=== PATIENT | male | born 1945 | race Caucasian/White ===

== ENCOUNTER → 2016-10-12 | Outpatient (CLI) | payer MEDICARE, OTHER ==
[~2016-10-12] MED LIST: ATENOLOL25 MG PO; MOTRIN 200200 MG/TAB PO; VASOTEC10 MG PO
== END ==
LOC: COL.RAD 10:08
DX: M79.9 Soft tissue disorder, unspecified (principal); W57.XXXA Bitten or stung by nonvenomous insect and other nonvenomous arthropods, initial encounter

== ENCOUNTER 2016-12-23 09:10 | Day surgery (SDC) | payer MEDICARE, OTHER ==
[~2016-12-23] VITALS: Ht 170.2 cm; Wt 108.8 kg
[2016-12-23] VITALS (8 sets, daily range): BP systolic 102–135; BP diastolic 51–82; PULSE 69–87; TEMP 98.2–99
[2016-12-23] MEDS ORDERED: HCTZ 25MG TAB25 MG PO (09:22)
[2016-12-23] MEDS ORDERED: VASOTEC 10M10 MG/TAB PO (09:23)
[2016-12-23 10:49] LABS: PH 5 (5-8); SQUAMOUS EPITHELIAL None Seen /hpf; URINE APPEARANCE Clear; URINE BACTERIA None Seen /hpf; URINE BILIRUBIN Negative (NEGATIVE); URINE BLOOD Negative (NEGATIVE); URINE COLOR Yellow; URINE GLUCOSE Negative (NEGATIVE); URINE KETONE Negative (NEGATIVE); URINE RBC 0-2 /hpf; URINE UROBILINOGEN >=4.0 mg/dL (NEGATIVE); URINE WBC 0-2 /hpf
[2016-12-23 10:55] LABS: ALBUMIN 4.1 gm/dL (3.5-5.0); BILIRUBIN,TOTAL 0.8 mg/dL (0.0-1.0); C-REACTIVE PROTEIN 8.9 mg/dL (0.0-0.9); CALCIUM 9.1 mg/dL (8.4-10.2); CREATININE, serum 0.7 mg/dL (0.66-1.25); POTASSIUM 3.9 mmol/L (3.4-5.0); TOTAL PROTEIN 7.3 gm/dL (6.4-8.2)
[2016-12-23 11:05] LABS: HEMATOCRIT 43.7 % (42.0-52.0); HEMOGLOBIN 14.7 g/dl (13.5-18.0); MEAN CELL VOLUME 89 fl (80.0-100.0); MEAN CORPUSCULAR HEMOGLOBIN 30 pg (27.0-31.0); MEAN CORPUSCULAR HGB CONC 34 g/dl (33.0-37.0); MEAN PLATELET VOLUME 9.6 fl (7.4-10.4); PLATELET COUNT 317 K/mm3 (130-400); RED BLOOD COUNT 4.91 M/mm3 (4.20-5.60); REDCELL DISTRIBUTION WIDTH-CV 13.1 % (11.5-14.5); WHITE BLOOD COUNT 18.3 K/mm3 (4.8-10.8)
[2016-12-23 11:06] LABS: ADD PATHOLOGY DIFF REVIEW NO
[2016-12-23 11:36] LABS: BAND 4 % (0-10); NEUTROPHILS 76 % (42.0-75.2); TOTAL CELLS COUNTED 100
[2016-12-23 11:37] LABS: PLATELET ESTIMATE NORMAL (NORMAL)
[2016-12-24 00:10] VITALS: BP 118/62; PULSE 65; TEMP 98
[2016-12-24 02:38] VITALS: BP 116/69; PULSE 63; TEMP 97.4
[2016-12-24 05:00] VITALS: BP 124/64; PULSE 68; TEMP 98
[2016-12-24 09:02] VITALS: BP 129/73; PULSE 66; TEMP 96
== END 2016-12-24 11:30 | disposition home or self-care (01) ==
LOC: COL.ER 09:10 → SURG 12:26 → SDCO 12:26 → SURG 12:40 → SDCO 12-24 11:30
PROVIDERS: Emergency Medicine
DX: K61.1 Rectal abscess (principal); I10 Essential (primary) hypertension; I25.10 Atherosclerotic heart disease of native coronary artery without angina pectoris; Z87.891 Personal history of nicotine dependence; M19.90 Unspecified osteoarthritis, unspecified site; Z90.49 Acquired absence of other specified parts of digestive tract; N28.1 Cyst of kidney, acquired; K76.89 Other specified diseases of liver
CPT/HCPCS: OP; J1100; J1170; J1885; J2250; J2405; J2543; J2704; J3010; J7030; J7040; J7050; J7120; Q9967

== ENCOUNTER 2021-08-20 08:53 | Inpatient (IN) | payer MEDICARE, OTHER ==
[~2021-08-20] VITALS: Ht 172.7 cm; Wt 107.0 kg
[~2021-08-20 08:53] MED LIST changes: +HCTZ 25MG TAB25 MG PO; +VASOTEC 10M10 MG/TAB PO
[2021-08-20 10:04] LABS: BASO % 0.2 % (0.0-2.0); EOS % 0.1 % (0.0-4.0); GRAN # 10.7 K/mm3 (1.4-6.5); GRAN % 83.6 % (42.2-75.2); HEMATOCRIT 42.9 % (42.0-52.0); HEMOGLOBIN 15.4 g/dl (13.5-18.0); LYMPH # 0.9 K/mm3 (1.2-3.4); MEAN CELL VOLUME 83 fl (80.0-100.0); MEAN CORPUSCULAR HEMOGLOBIN 30 pg (27-31); MEAN CORPUSCULAR HGB CONC 36 g/dl (33.0-37.0); MEAN PLATELET VOLUME 10.7 fl (7.4-10.4); MONO # 1.1 K/mm3 (0.1-0.6); MONO % 8.3 % (1.7-9.3); PLATELET COUNT 306 K/mm3 (130-400); RED BLOOD COUNT 5.18 M/mm3 (4.20-5.60); REDCELL DISTRIBUTION WIDTH-CV 13.3 % (11.5-14.5)
[2021-08-20 10:23] LABS: ALBUMIN 3.2 gm/dL (3.4-4.8); BILIRUBIN,TOTAL 0.8 mg/dL (0.2-1.2); CALCIUM 9.5 mg/dL (8.4-10.2); CREATININE, serum 1.74 mg/dL (0.72-1.25); TOTAL PROTEIN 6.4 gm/dL (6.2-8.1)
[2021-08-20 11:25] LABS: COLLECTION METHOD CLEAN CATCH
[2021-08-20 11:46] LABS: MUCOUS Present (NOT PRESENT); PH 6 (5-8); SQUAMOUS EPITHELIAL None Seen /hpf (0-10); URINE APPEARANCE Clear (CLEAR/HAZY); URINE BACTERIA Rare /hpf (NONE SEEN); URINE BILIRUBIN Negative (NEGATIVE); URINE BLOOD Negative (NEGATIVE); URINE COLOR Yellow (YELLOW); URINE GLUCOSE Negative (NEGATIVE); URINE KETONE Trace (NEGATIVE); URINE LEUKOCYTE ESTERASE Negative (NEGATIVE); URINE NITRATE Negative (NEGATIVE); URINE PROTEIN(semi-quant) Negative (NEGATIVE); URINE RBC 0-2 /hpf (0-2); URINE UROBILINOGEN Negative (NEGATIVE)
[2021-08-20 14:19] VITALS: BP 97/53; PULSE 99; TEMP 98.1
[2021-08-20 15:40] VITALS: BP 130/58; PULSE 89; TEMP 98.7
--- NOTE | 2021-08-20 18:13 | NUR ---
PT LAYING SUPINE IN BED ON ROOM AIR. PT STATES THAT HE WOULD LIKE TO TAKE HIS BP MEDICATIONS. MEDICATIONS WERE NOT ORDERED. CALLED [facility] AND SHE STATES THAT THEY ARE GOING TO CONTINUE TO HOLD THEM UNTIL IN THE AM BECAUSE HIS CREATINE WAS A LITTLE HIGH. PT WAS INFORMED AND UNHAPPY ABOUT DECISION BUT VERBALIZES UNDERSTANDING. PT STATES THAT HE IS NOT HAVING ANY PAIN AT THIS TIME. HIS RIGHT LEG IS RED AND ELEVATED ON BLANKETS. PT STATES NO NEEDS AT THIS TIME. "I WOULD JUST LIKE TO GET SOME REST." CALL LIGHT IS WITHIN REACH.
[2021-08-20 21:37] VITALS: BP 109/52; PULSE 85; TEMP 97.8
[2021-08-21 01:00] VITALS: BP 135/63; PULSE 90; TEMP 98.7
[2021-08-21 04:55] VITALS: BP 137/63; PULSE 77; TEMP 98.8
[2021-08-21 07:25] LABS: BASO % 0.2 % (0.0-2.0); EOS % 0.1 % (0.0-4.0); GRAN # 7.8 K/mm3 (1.4-6.5); GRAN % 78.5 % (42.2-75.2); HEMATOCRIT 41.4 % (42.0-52.0); LYMPH # 1.1 K/mm3 (1.2-3.4); LYMPH % 10.6 % (20.0-51.0); MEAN CELL VOLUME 87 fl (80.0-100.0); MEAN CORPUSCULAR HEMOGLOBIN 30 pg (27-31); MEAN CORPUSCULAR HGB CONC 34 g/dl (33.0-37.0); MEAN PLATELET VOLUME 10.2 fl (7.4-10.4); MONO % 9.6 % (1.7-9.3); PLATELET COUNT 337 K/mm3 (130-400); RED BLOOD COUNT 4.75 M/mm3 (4.20-5.60); REDCELL DISTRIBUTION WIDTH-CV 13.5 % (11.5-14.5)
[2021-08-21 07:54] LABS: C-REACTIVE PROTEIN 5.84 mg/dL (0.00-0.50); CALCIUM 8.5 mg/dL (8.4-10.2); CREATININE, serum 0.86 mg/dL (0.72-1.25); MAGNESIUM 2.1 mg/dL (1.6-2.6); POTASSIUM 3.6 mmol/L (3.5-4.5)
[2021-08-21 07:58] VITALS: BP 128/54; PULSE 92; TEMP 98.4
--- NOTE | 2021-08-21 09:10 | NUR ---
PT LAYING SUPINE IN BED ON ROOM AIR. PT STATES THAT HE IS NOT HAVING ANY PAIN OR DISCOMFORT AT THIS TIME. "I ALREADY HAD MY BREAKFAST AND IT WAS ACTUALLY PRETTY GOOD TODAY." PT STATES NO NEEDS AT THIS TIME. RIGHT LEG IS RED AND CELLULITIS IS NOTED. LEG IS ELEVATED ON BLANKETS. CALL LIGHT IS WITHIN REACH.
--- NOTE | 2021-08-21 10:26 | NUR ---
custom shop worker met with patient to complete intake and discuss discharge plan. Patient states that he lives at home alone in [place]. He states that he has trouble performing his ADL's due to the pain in his legs. Patient states that he will utilize a walker when he has to use tthe restroom to help with his balance but he will use a cane to assist with ambulation. Patient has no home oxygen needs. PCP is Dr. Mchugh and he utilizes [facility] for medication needs. Patient states that he does have a DPOA-HC established listing his daughter Lyn([phone]). SW informed the patient that PT/OT has been ordered and we will wait for their recommendations for dc plan. Discharge plan: Home *pending PT/OT rec's*
--- NOTE | 2021-08-21 10:36 | NUR ---
Initial visit attempt; Patient resting, Ordnance Truck Installation Mechanic left card offering God's blessings and letting him know of the availability of [facility] at our hospital.
[2021-08-21 11:27] VITALS: BP 153/61; PULSE 88; TEMP 98.8
[2021-08-21 15:42] VITALS: BP 149/68; PULSE 94; TEMP 98.7
--- NOTE | 2021-08-21 18:33 | NUR ---
PT LAYING IN BED WATCHING TV. PT STATES THAT HE IS NOT HAVING ANY PAIN. PT STATES NO NEEDS AT THIS TIME. "I AM JUST HANGING OUT." CALL LIGHT IS WITHIN REACH.
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
[2021-08-21 21:32] VITALS: BP 161/64; PULSE 98; TEMP 100.9
[2021-08-22] VITALS (7 sets, daily range): BP systolic 132–162; BP diastolic 57–71; PULSE 64–96; TEMP 97.5–100.3
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
--- NOTE | 2021-08-22 09:30 | NUR ---
Patient is sitting in bed, alert an oriented x 4. Denies pain in his leg. Continues with reddness and inflamation. Assessment completed, IV leaking, DC. and will start new one. Assessment completed, continue monitoring.
--- NOTE | 2021-08-22 12:08 | NUR ---
Unable to get a new IV in PT. Several times including house supr. were done. Reported to Yessenia, who ordered a dose of rosephin IM and a PICC to be started tomorrow morning.
--- NOTE | 2021-08-22 17:56 | NUR ---
Patient has been resting along the day. His son came to visit him. Aware of need for PICC access. Denied pain along the day. No fever but HTN. Report will be given to nurse RN.
--- NOTE | 2021-08-22 18:22 | NUR ---
Patient awake in room, refused to eat the food he ordered for dinner. He is confused. He asked about next dose of antibiotics. It was explained that he got an IM dose of Rocephin. He thinks that it was yesterday. Reoriented about IV DC and problems to restart a new one and the need for a PICC tomorrow morning.
--- NOTE | 2021-08-22 20:31 | NUR ---
Patient denies pain and discomfort. Has no IV Access at this time. Physician is aware, and patient is to have PICC placed tomorrow. Explained to patient and voiced understanding. Redness continues to RLE. Contained in the markings. 3+ edema and warmth continues. 2+ edema LLE. Voices no questions, needs, or concerns at this time. In bed with call light within reach. Bed alarm on.
[2021-08-23 03:39] VITALS: BP 159/72; PULSE 93; TEMP 98.2
--- NOTE | 2021-08-23 05:44 | NUR ---
Patient recieved PRN Acetaminophen once during the night for low grade fever. Has voiced no questions, needs, or concerns. Plan to get PICC line placed today and continue IV ABX. Has had urinary frequency during the night. In bed with call light within reach. Bed alarm on.
[2021-08-23 06:32] LABS: HEMATOCRIT 37.4 % (42.0-52.0); MEAN CELL VOLUME 86 fl (80.0-100.0); MEAN CORPUSCULAR HEMOGLOBIN 30 pg (27-31); MEAN CORPUSCULAR HGB CONC 35 g/dl (33.0-37.0); MEAN PLATELET VOLUME 9.3 fl (7.4-10.4); PLATELET COUNT 295 K/mm3 (130-400); RED BLOOD COUNT 4.33 M/mm3 (4.20-5.60); REDCELL DISTRIBUTION WIDTH-CV 13.7 % (11.5-14.5)
[2021-08-23 06:51] LABS: CALCIUM 8.6 mg/dL (8.4-10.2); CREATININE, serum 0.78 mg/dL (0.72-1.25); POTASSIUM 3.6 mmol/L (3.5-4.5)
--- NOTE | 2021-08-23 08:00 | NUR ---
Patient is sitting in bed, alert and oriented, VSS. Telemetry in place, NSR. States some improvement in his RLE, denies pain. Assessment completed, pt will wait for PICC placement. No other needs at this time.
[2021-08-23 08:15] VITALS: BP 148/74; PULSE 80; TEMP 98.2
[2021-08-23 08:20] LABS: BAND 5 % (0-10); LYMPHOCYTE 10 % (20.0-51.0); NEUTROPHILS 82 % (42.0-75.2)
[2021-08-23 08:31] LABS: PLATELET ESTIMATE NORMAL (NORMAL)
[2021-08-23 10:48] VITALS: BP 148/74; PULSE 80; TEMP 98.2
[2021-08-23 12:29] VITALS: BP 177/75; PULSE 91; TEMP 98.1
--- NOTE | 2021-08-23 15:06 | NUR ---
Prosthetic Assistant met with patient to review discharge plan and PT recommendation for Home Health. Patient is not interested in Home Health but instead wants to be set up with outpatient PT at [facility]. SW did provide Medicare.gov list of agencies that serve [place]. Discharge Plan: Home with outpatient PT
[2021-08-23 15:54] VITALS: BP 157/77; PULSE 91; TEMP 99.9
--- NOTE | 2021-08-23 19:18 | NUR ---
Patient has been stable along the day, he got his doses of antibiotics. No pain reported. Report given to night RN.
[2021-08-23 19:50] VITALS: BP 149/74; PULSE 92; TEMP 98.8
--- NOTE | 2021-08-23 21:29 | NUR ---
Patient assessed around 2049. Denies pain and discomfort. Redness continues to RLE, but decreased compared to yesterday. PICC to RUE, recieving IV ABX per orders. Patient voices no questions, needs, or concerns at this time. In bed with call light within reach. Bed alarm on.
[2021-08-24] VITALS (7 sets, daily range): BP systolic 128–157; BP diastolic 62–80; PULSE 94–113; TEMP 98.1–100.9
--- NOTE | 2021-08-24 05:40 | NUR ---
Patient recieved IV ABX per orders during the night. Denies having pain and discomfort. Labs drawn from PICC to RUE. Voices no questions, needs, or concerns at this time. In bed with call light within reach.
[2021-08-24 07:09] LABS: BASO % 0.3 % (0.0-2.0); EOS % 0.1 % (0.0-4.0); GRAN # 6.7 K/mm3 (1.4-6.5); GRAN % 86.9 % (42.2-75.2); HEMATOCRIT 38.2 % (42.0-52.0); HEMOGLOBIN 12.8 g/dl (13.5-18.0); LYMPH # 0.5 K/mm3 (1.2-3.4); MEAN CELL VOLUME 88 fl (80.0-100.0); MEAN CORPUSCULAR HEMOGLOBIN 30 pg (27-31); MEAN CORPUSCULAR HGB CONC 34 g/dl (33.0-37.0); MEAN PLATELET VOLUME 9.7 fl (7.4-10.4); MONO # 0.3 K/mm3 (0.1-0.6); MONO % 4.4 % (1.7-9.3); PLATELET COUNT 282 K/mm3 (130-400); RED BLOOD COUNT 4.33 M/mm3 (4.20-5.60)
[2021-08-24 07:15] LABS: CALCIUM 8.5 mg/dL (8.4-10.2); CREATININE, serum 0.76 mg/dL (0.72-1.25); POTASSIUM 3.9 mmol/L (3.5-4.5)
--- NOTE | 2021-08-24 08:30 | NUR ---
Patient is resting in bed, after breakfast. Alert and oriented, VSS. Redness in leg is improving and no so warm this morning. Denies pain. Assessment completed, antibiiotics running. No other needs at this time. Call light within reach. Bed alarm on.
--- NOTE | 2021-08-24 14:03 | NUR ---
Spring Intern contacted patient's daughter, Lyn to review discharge plan. Lyn advised that patient is a private person and likely will not agree to home health services. Lyn states she can care for patient at home and is agreeable to oupatient PT. Discharge Plan: Home with outpatient PT
--- NOTE | 2021-08-24 17:47 | NUR ---
Patient has had a calm day, continue getting antibiotics. VSS, with HTN. Denies pain. Report will be given to shift superintendent caustic cresylate nurse.
--- NOTE | 2021-08-24 20:30 | NUR ---
Initial shift assessment done- temp 100.9, will give Tylenol as ordered, denies pain at this time, bilateral lower extremity edema, R>L, right leg remains red but is improving- pt states looks much better, standing at bedside with assist to urinate.
[2021-08-25] VITALS (8 sets, daily range): BP systolic 120–173; BP diastolic 48–88; PULSE 73–126; TEMP 97.6–102.7
--- NOTE | 2021-08-25 05:26 | NUR ---
Quiet night- VSS, no requests, denies pain- PICC to DENILSON,, Did have 100.9 temp at start of shift ,now afebrile after Tylenol
[2021-08-25 09:06] LABS: BASO % 0.2 % (0.0-2.0); EOS % 0.2 % (0.0-4.0); GRAN # 5.4 K/mm3 (1.4-6.5); GRAN % 87.1 % (42.2-75.2); HEMATOCRIT 38.9 % (42.0-52.0); HEMOGLOBIN 13.3 g/dl (13.5-18.0); LYMPH # 0.5 K/mm3 (1.2-3.4); LYMPH % 7.5 % (20.0-51.0); MEAN CELL VOLUME 87 fl (80.0-100.0); MEAN CORPUSCULAR HEMOGLOBIN 30 pg (27-31); MEAN CORPUSCULAR HGB CONC 34 g/dl (33.0-37.0); MEAN PLATELET VOLUME 9.5 fl (7.4-10.4); MONO # 0.2 K/mm3 (0.1-0.6); MONO % 3.9 % (1.7-9.3); PLATELET COUNT 231 K/mm3 (130-400); RED BLOOD COUNT 4.47 M/mm3 (4.20-5.60); REDCELL DISTRIBUTION WIDTH-CV 14.4 % (11.5-14.5)
[2021-08-25 09:28] LABS: CALCIUM 8.2 mg/dL (8.4-10.2); CREATININE, serum 1.03 mg/dL (0.72-1.25); POTASSIUM 3.8 mmol/L (3.5-4.5)
--- NOTE | 2021-08-25 09:30 | NUR ---
PT LAYING SUPINE IN BED ON ROOM AIR. PT STATES THAT HE IS NOT HAVING ANY PAIN. RIGHT LEG IS VANIA AND HAS EDEMA. REDNESS HAS GONE DOWN A LOT FROM THE MARKED LINES THAT ARE ON THE LEG. PT STATES NO NEEDS OR CONCERNS AT THIS TIME. CALL LIGHT IS WITHIN REACH.
--- NOTE | 2021-08-25 17:48 | NUR ---
SPOKE TO XRAY ABOUT CHEST XRAY ORDER. "IM THE ONLY ONE WORKING RIGHT NOW, I'M IN THE OR. ILL GET TO IT WHEN I GET TO IT."
--- NOTE | 2021-08-25 18:27 | NUR ---
PT LAYING SUPINE IN BED ON ROOM AIR SLEEPING. NO S/S OF PAIN/DISTRESS AT THIS TIME. CALL LIGHT IS WITHIN REACH.
[2021-08-25 21:38] LABS: COLLECTION METHOD CLEAN CATCH
[2021-08-25 21:49] LABS: MUCOUS Present (NOT PRESENT); PH 5 (5-8); SQUAMOUS EPITHELIAL None Seen /hpf (0-10); URINE APPEARANCE Hazy (CLEAR/HAZY); URINE BACTERIA None Seen /hpf (NONE SEEN); URINE BILIRUBIN Negative (NEGATIVE); URINE BLOOD 1+ (NEGATIVE); URINE COLOR Yellow (YELLOW); URINE GLUCOSE Negative (NEGATIVE); URINE KETONE Negative (NEGATIVE); URINE LEUKOCYTE ESTERASE Negative (NEGATIVE); URINE NITRATE Negative (NEGATIVE); URINE PROTEIN(semi-quant) Negative (NEGATIVE); URINE RBC 0-2 /hpf (0-2); URINE UROBILINOGEN Negative (NEGATIVE)
[2021-08-25 22:12] LABS: HEMOGLOBIN 11.8 g/dl (13.5-18.0); MEAN CELL VOLUME 86 fl (80.0-100.0); MEAN CORPUSCULAR HEMOGLOBIN 29 pg (27-31); MEAN CORPUSCULAR HGB CONC 34 g/dl (33.0-37.0); MEAN PLATELET VOLUME 9.5 fl (7.4-10.4); PLATELET COUNT 175 K/mm3 (130-400); RED BLOOD COUNT 4.08 M/mm3 (4.20-5.60); REDCELL DISTRIBUTION WIDTH-CV 14.2 % (11.5-14.5)
[2021-08-25 22:17] LABS: HEMATOCRIT 35.1 % (42.0-52.0)
[2021-08-25 22:21] LABS: CALCIUM 7.8 mg/dL (8.4-10.2); CREATININE, serum 1.03 mg/dL (0.72-1.25); POTASSIUM 3.2 mmol/L (3.5-4.5)
[2021-08-25 22:37] LABS: BAND 13 % (0-10); LYMPHOCYTE 9 % (20.0-51.0); NEUTROPHILS 76 % (42.0-75.2); PLATELET ESTIMATE NORMAL (NORMAL)
--- NOTE | 2021-08-25 22:57 | NUR ---
Patient assessed around 2019. At that time, temp 101.1, HR 120s, respirations 40s, shallow, labored. Denies SOB and dyspnea. LS expiratory wheezing in upper lobes, diminished in lower. 91% room air. Put on oxygen at 2 L/min via NC. Called Dariela. New orders obtained. Given PRN APAP and started bolus per orders. Blood cultures obtained as well as UA. CXR ordered, radiology aware. Around 2129, HR 70s, temp 102.7, respirations in the 30s. Updated Dairela. New order to continue IV fluids, and give Motrin. PICC to RUE. BSAx4. 2+ edema BLE. Redness/warmth continues to RLE. Patient updated on plant of care, and voiced understanding. In bed with call light within reach. Bed alarm on.
[2021-08-26 07:06] LABS: HEMOGLOBIN 11.8 g/dl (13.5-18.0); MEAN CELL VOLUME 88 fl (80.0-100.0); MEAN CORPUSCULAR HEMOGLOBIN 30 pg (27-31); MEAN CORPUSCULAR HGB CONC 34 g/dl (33.0-37.0); MEAN PLATELET VOLUME 10.1 fl (7.4-10.4); PLATELET COUNT 150 K/mm3 (130-400); RED BLOOD COUNT 3.99 M/mm3 (4.20-5.60); REDCELL DISTRIBUTION WIDTH-CV 14.5 % (11.5-14.5)
[2021-08-26 07:15] LABS: HEMATOCRIT 35.1 % (42.0-52.0)
[2021-08-26 07:20] LABS: CALCIUM 7.8 mg/dL (8.4-10.2); CREATININE, serum 1.02 mg/dL (0.72-1.25); POTASSIUM 3.2 mmol/L (3.5-4.5)
[2021-08-26 07:38] VITALS: BP 126/59; PULSE 84; TEMP 97.5
--- NOTE | 2021-08-26 08:35 | NUR ---
PT LAYING SUPINE IN BED WITH 2LIT VIA NC ON. PT STATES THAT HE IS NOT HAVING ANY PAIN OR SOB AT THIS TIME. RIGHT LEG IS RED BUT HAS GREATLY DECREASED FROM MARKED LINES. PT STATES NO NEEDS OR CONCERNS AT THIS TIME. CALL LIGHT IS WITHIN REACH.
[2021-08-26 08:53] LABS: BAND 26 % (0-10); LYMPHOCYTE 5 % (20.0-51.0); NEUTROPHILS 69 % (42.0-75.2); PLATELET ESTIMATE NORMAL (NORMAL)
--- NOTE | 2021-08-26 10:10 | NUR ---
SEE ORDER TO DC GILBERTO FROM . SPOKE TO AND EXPLAINED THAT PT HAS AN EXTERNAL CATH AND NOT AN INTERNAL. DR. HELM STATES "OK, I THOUGHT IT WAS AN INTERNAL ONE, IT CAN STAY THEN"
[2021-08-26 11:33] VITALS: BP 137/65; PULSE 87; TEMP 97.6
[2021-08-26 15:32] VITALS: BP 162/77; PULSE 121; TEMP 101.9
--- NOTE | 2021-08-26 15:32 | NUR ---
PT DAUGHTER CAME OUT AND WAS STATING THAT PT WAS IN PAIN AND NEEDS PAIN MEDICATION THAT IS STRONGER THEN TYLENOL. PRN OXYCODONE WAS GIVEN PER MAR. PT RATES THE PAIN A "4 OR 5" AND STATES THAT PAIN IS IN HIS RIGHT LEG. DAUGHTER STATES THAT "NO, HIS PAIN IS HIGHER THEN THAT, PROBABLY LIKE AN 8 OR 9. HE JUST WONT SAY IT IS VERY HIGH CAUSE HE IS A MAN." DAUGHTER ALSO CONCERNED THAT HIS O2 WAS NOT ON. O2 WAS 91% ON ROOM AIR. DAUGHTER REQUESTING THAT 02 BE PUT BACK ON. 2 LIT VIA NC WAS PUT ON. DAUGHTER AND PT STATES NO OTHER NEEDS AT THIS TIME.
--- NOTE | 2021-08-26 18:33 | NUR ---
PT RESTING IN BED ON 2LIT VIA NC. PT STATES HIS PAIN IS A ZERO. PT STATES NO NEEDS AT THIS TIME. CALL LIGHT IS WITHIN REACH.
--- NOTE | 2021-08-26 20:30 | NUR ---
Initial shift assessment done- states some pain to RLE- remains red/improving 05/20--will give Gonzalo ferrari,, PICC DENILSON, 02 1L/nc, has been resting well, external condom cath on- draining amanda urine. No requests. VSS, no temp at this time.
[2021-08-26 20:55] VITALS: BP 154/71; PULSE 108; TEMP 97.8
[2021-08-27 00:39] VITALS: BP 118/54; PULSE 88; TEMP 98.2
[2021-08-27 04:49] VITALS: BP 117/56; PULSE 91; TEMP 97.8
--- NOTE | 2021-08-27 05:47 | NUR ---
Pt states he is feeling much better this morning- VSS, no fevers during this shift, IV fluids NS at 75cc/hr
[2021-08-27 07:30] LABS: HEMOGLOBIN 12.1 g/dl (13.5-18.0); MEAN CELL VOLUME 89 fl (80.0-100.0); MEAN CORPUSCULAR HEMOGLOBIN 30 pg (27-31); MEAN CORPUSCULAR HGB CONC 33 g/dl (33.0-37.0); MEAN PLATELET VOLUME 10.6 fl (7.4-10.4); PLATELET COUNT 91 K/mm3 (130-400); RED BLOOD COUNT 4.06 M/mm3 (4.20-5.60); REDCELL DISTRIBUTION WIDTH-CV 14.4 % (11.5-14.5)
[2021-08-27 07:39] LABS: HEMATOCRIT 36.2 % (42.0-52.0)
[2021-08-27 07:56] VITALS: BP 133/75; PULSE 99; TEMP 98
[2021-08-27 08:01] LABS: CREATININE, serum 0.79 mg/dL (0.72-1.25); POTASSIUM 3.4 mmol/L (3.5-4.5)
[2021-08-27 08:54] LABS: BAND 21 % (0-10); LYMPHOCYTE 8 % (20.0-51.0); NEUTROPHILS 68 % (42.0-75.2)
[2021-08-27 08:55] LABS: OVALOCYTES 1+; PLATELET ESTIMATE DECREASED (NORMAL)
--- NOTE | 2021-08-27 09:15 | NUR ---
PT LAYING SUPINE IN BED ON ROOM AIR. PT STATES NO SOB AT THIS TIME. PT STATES THAT HIS EXTERNAL CATH CAME OFF. I SUGGESTED TO PT TO LEAVE IT OFF AND TRY TO GET UP AND USE THE URINAL. PT STATES THAT IT IS TO HARD TO GET UP AND DOWN. I SUGGESTED THAT PT GET UP TO THE BEDSIDE CHAIR TODAY SO THAT IT WOULD BE EASIER TO GET UP AND DOWN AND PT REFUSED. PT STATES THAT HE WOULD RATHER LAY IN THE BED. I INFORMED PT THAT HE WILL BE GOING HOME SOON AND THAT HE WILL NOT HAVE THE CATH AT HOME SO IT WOULD BE GOOD TO TRY TO GET IT OFF AND GET HIM UP AND MOVING A LITTLE BIT MORE. PT REFUSES AND STATES "I DO NOT WANT TO GET UP AND DOWN THAT MUCH. EXTERNAL CATH WAS REPLACED PER PT REQUEST. PT STATES NO OTHER NEEDS OR CONCERNS. CALL LIGHT IS WITHIN REACH.
[2021-08-27 11:31] VITALS: BP 143/75; PULSE 101; TEMP 98.1
--- NOTE | 2021-08-27 14:48 | NUR ---
Missile Inspector [employer] contacted patient's daughter, Lyn to review OT recommendation for SNF. Lyn advised that the plan is still to return home at the time of discharge and she plans to stay with patient at all times. Lyn advised she is a retired nurse and feels she can manage patient's needs at home. Lyn requested and update from Hospitalist so JOJO contacted Hospitalist and requested they contact Lyn. Discharge Plan: Home with daughter
[2021-08-27 15:19] VITALS: BP 151/94; PULSE 121; TEMP 98.5
--- NOTE | 2021-08-27 18:50 | NUR ---
PT SITTING UP EATING DINNER. PT TEMP WAS CHECKED AND IT WAS 100.9. TYLENOL WAS GIVEN. PT SEEMS TO BE SOB OF BREATH. O2 WAS CHECKED AND IT WAS 88%. 2LIT VIA NC WAS PUT ON. PT STATES THAT HE IS NOT HAVING ANY SOB OR PAIN AT THIS TIME. PT STATES "I AM JUST EATING MY DINNER." CALL LIGHT IS WITHN REACH.
[2021-08-27 20:11] VITALS: BP 135/64; PULSE 122; TEMP 99.8
[2021-08-28 00:21] VITALS: BP 156/73; PULSE 105; TEMP 98.7
--- NOTE | 2021-08-28 01:01 | NUR ---
Pt alert and oriented, resting quietly, follows commands. Denies chest pain/SOB. Noted pt has shallow respirations and appears SOB, but denies feeling SOB. Currently on 1L o2 satting WNL. Pt's skin is warm and moist. Pt had a temp prior to shift change, and the dayshift RN administered prn tylenol, pt's temp decreased to 98.7 at 0000. Pt's HR at 1999 was in the 120's. Notified provider, Dariela Ngo, who ordered a 1,000 ml bolus of NS over 2 hours. Administered bolus per orders and HR decreased to 102 at 0000. Medications administered per orders and education provided. Shift assessment performed. VS stable currently, HR at 102. Temp at 98.7F. Pt satting WNL on 1L NC. Continuing with ordered IV antibx. PICC noted in DENILSON. Right arm restriction enforced. BLE have 2+ edema with redness/warmth. External catheter remains on. Pt voiding. Pt does not report any quesions at this time, will continue to monitor.
[2021-08-28 04:50] VITALS: BP 146/71; PULSE 110; TEMP 99.7
--- NOTE | 2021-08-28 07:00 | NUR ---
Pt resting in bed. Denies needs at this time. Call light within reach.
[2021-08-28 07:07] VITALS: BP 149/79; PULSE 111; TEMP 98.6
--- NOTE | 2021-08-28 07:21 | NUR ---
No adverse events overnight. Pt alert and oriented, follows commands. Denies chest pain/SOb this morning. Pt continues to have expiratory wheezing at rest and shallow respirations. VS stable. Satting WNL on 1L NC. Temperature max 99.3 overnight, decreased this morning to 98.6 at 0400. Continued with IV antibx per orders. BLE have 2+ edema and remain red. Pt denies RLE pain this morning. Tolerated PO. No nausea/vomiting/diarrhea overnight. Pt does not report any questions at this time, will continue to monitor.
[2021-08-28 11:12] VITALS: BP 143/69; PULSE 120; TEMP 100
--- NOTE | 2021-08-28 15:28 | NUR ---
1000-PT CLEANED UP, REPOSITIONED, AND EXTERNAL CATHETER CHANGED. 1100- WORKED WITH PT TO STAND. 1300- PT BOOSTED AND REPOSITIONED. WATER GIVEN. 1400- PT DOWN TO CT. 1445- PT BACK FROM CT. PT CLEANED AND REPOSITIONED. DAUGHTER BEDSIDE WITH QUESITONS FOR PROVIDER. 1500- NOTIFIED THAT DAUGHTER WOULD LIKE TO SPEAK TO HIM. BEDSIDE.
[2021-08-28 15:41] VITALS: BP 157/80; PULSE 110; TEMP 98.5
[2021-08-28] MEDS ORDERED: CEPHALEXIN250 M1 PO (16:13)
[2021-08-28] MEDS ORDERED: PROBIOTIC BLEN1 EACH PO (16:14)
[2021-08-28] MEDS ORDERED: ASPIRIN 81M81 MG/TA2 PO (16:49)
--- NOTE | 2021-08-28 18:38 | NUR ---
1700-DISCUSSED WITH AND WITH PT'S DAUGHTER CONCERN FOR PT'S DISCHARGE HOME D/T WEAKNESS AND INCREASED WHEEZING. PT HAD TO HAVE TO PT, WALKER, AND GAIT BELT TO STAND TODAY AND WAS ONLY ABLE TO DO 2 STEPS. DAUGHTER STATES SHE UNDERSTANDS AND CAN CARE FOR HIM AT HOME. 1800- PICC LINE DC'D PER PROTOCOL. NO DRAINGAGE NOTED. DAUGHTER AND PT INSTRUCTED ON CARE. DC FORM GIVEN. 1830-DISCHARGE INSTRUCTIONS DISCUSSED WITH PT'S DAUGHTER. DISCUSSED NEW HOME MEDICAITIONS, MONITORING CELLULITIS, PICC LINE SITE, AND ACTIVITY. PT GIVEN HOME HEALTH ORDER AND INSTRUCTED IF THEY CHANGE THEIR MIND TO CALL AND SET UP HOME CARE. PT AND DAUGHTER VERBALIZED UNDERSTANDING. PT DRESSED AND AWAITING WHEELCHAIR DOWN FOR DISCHARGE.
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
== END 2021-08-28 19:00 | disposition home health service (06) | DRG 872 ==
LOC: COL.ER 08:53 → MEDICAL 09:51
PROVIDERS: Emergency Medicine; Internal Medicine; Nurse Practitioner Family; Physician Assistant; ADMIT Internal Medicine
PROC: 02HV33Z Insertion of Infusion Device into Superior Vena Cava, Percutaneous Approach (ICD-10-PCS; principal; 2021-08-23)
DX: A41.9 Sepsis, unspecified organism (principal); L03.115 Cellulitis of right lower limb; N17.9 Acute kidney failure, unspecified; E87.1 Hypo-osmolality and hyponatremia; R06.2 Wheezing; I10 Essential (primary) hypertension; I25.10 Atherosclerotic heart disease of native coronary artery without angina pectoris; R53.81 Other malaise; Z90.89 Acquired absence of other organs; Z90.49 Acquired absence of other specified parts of digestive tract; Z87.891 Personal history of nicotine dependence; Z23 Encounter for immunization
CPT/HCPCS: 99223-AI; 99231-AI; 99232-AI; 99233-AI; 99239; C1751; J0696; J1644; J1650; J1940; J2185; J2543; J3370; J7030; J7040; J7050; Q9967

== ENCOUNTER → 2021-10-06 | Outpatient (CLI) | payer MEDICARE, OTHER ==
[~2021-10-06] MED LIST changes: +ASPIRIN 81M81 MG/TA2 PO; +CEPHALEXIN250 M1 PO; +PROBIOTIC BLEN1 EACH PO
== END ==
LOC: COL.RAD 08:17
DX: G31.9 Degenerative disease of nervous system, unspecified (principal); I67.82 Cerebral ischemia

== ENCOUNTER → 2021-10-13 | Outpatient (CLI) | payer MEDICARE, OTHER | LOC: COL.VAS 10-12 11:15 | DX: I65.23 Occlusion and stenosis of bilateral carotid arteries (principal) ==